=== PATIENT | male | born 1935 | race Caucasian/White ===

== ENCOUNTER → 2017-01-21 | Outpatient (CLI) | payer MEDICARE | END | disposition home or self-care (01) | LOC: PCVCCLINIC 12:08 | PROVIDERS: ATTEND Internal Medicine Cardiovascular Disease | DX: I48.0 Paroxysmal atrial fibrillation (principal); I10 Essential (primary) hypertension; J44.9 Chronic obstructive pulmonary disease, unspecified; I77.89 Other specified disorders of arteries and arterioles; Z90.49 Acquired absence of other specified parts of digestive tract; Z79.01 Long term (current) use of anticoagulants; Z79.899 Other long term (current) drug therapy; Z91.040 Latex allergy status | CPT/HCPCS: 80061; 93005; G0463 ==

== ENCOUNTER → 2018-03-26 | Outpatient (CLI) | payer MEDICARE ==
--- NOTE | 2018-03-26 16:44 | PCVCIMAG ---
APPROVED REPORT Study performed: 03/26/2018 14:48:44 EXAM: Comprehensive 2D, Doppler, and color-flow Echocardiogram Patient Location: Echo lab Status: routine BSA: 1.74 HR: 81 bpmBP: 130/72 mmHg Rhythm: NSR with PACs Other Information Study Quality: Adequate Risk Factors: Cardiac Risk Factors: HTN Indications Atrial Fibrillation Dyspnea 2D Dimensions LVEF(%): 38.36 (>50%) IVSd: 13.82 (7-11mm) LVDd: 37.80 mm PWd: 12.84 (7-11mm)Ascending Ao: 33.54 (22-36mm) LVDs: 30.93 (25-40mm) Left Atrium: 33.57 (27-40mm) Aortic Root: 31.31 mm LV Single Plane 4CH: 49.17 % LV Single Plane 2CH: 46.47 %[facility] LVEF: 47.82 % Biplane EF: 47.6 % Volumes Left Atrial Volume (Systole) Single Plane 4CH: 48.87 mLSingle Plane 2CH: 57.68 mL LA ESV Index: 31.00 mL/m2 Aortic Valve AoV Peak Randolph.: 1.97 m/s AO Peak Gr.: 15.55 mmHgLVOT Max P.10 mmHg LVOT Max V: 1.12 m/s Mitral Valve E/A Ratio: 0.5 MV Decel. Time: 267.42 ms MV E Max Randolph.: 0.63 m/s MV A Randolph.: 1.30 m/s IVRT: 121.11 ms Pulmonary Valve PV Peak Randolph.: 0.84 m/sPV Peak Gr.: 2.86 mmHg Pulmonary Vein P Vein S: 0.28 m/sP Vein A: 0.33 m/s P Vein D: 0.34 m/sP Vein A Dur.: 155.7 msec P Vein S/D Ratio: 0.82 Tricuspid Valve TR Peak Randolph.: 2.54 m/s TR Peak Gr.: 25.92 mmHg Left Ventricle The left ventricle is normal size. There is normal LV segmental wall motion. Mild concentric left ventricular hypertrophy. Left ventricular systolic function is mildly decreased. LVEF is 45-50%. Grade I - abnormal relaxation pattern. Right Ventricle The right ventricle is normal size. The right ventricular systolic function is normal. Atria The left atrium size is normal. The right atrium size is normal. Aortic Valve The aortic valve is normal in structure. Mild aortic regurgitation. There is no aortic valvular stenosis. Mitral Valve The mitral valve is normal in structure. Trace mitral regurgitation. No evidence of mitral valve stenosis. Tricuspid Valve The tricuspid valve is normal in structure. Mild tricuspid regurgitation with PAP of 33 mmHg. Pulmonic Valve The pulmonary valve is normal in structure. Trace pulmonic regurgitation. Great Vessels The aortic root is normal in size. IVC is normal in size and collapses with >50% inspiration Pericardium There is no pericardial effusion. There is no pleural effusion. <Conclusion> The left ventricle is normal size. Mild concentric left ventricular hypertrophy. Left ventricular systolic function is mildly decreased. LVEF is 45-50%. Grade I - abnormal relaxation pattern. The right ventricle is normal size. The left atrium size is normal. The right ventricular systolic function is normal. The aortic valve is normal in structure. Trace mitral regurgitation. Mild tricuspid regurgitation with PAP of 33 mmHg. The aortic root is normal in size. There is no pericardial effusion.
== END | disposition home or self-care (01) ==
LOC: PCVCCLINIC 13:13
PROVIDERS: ATTEND Internal Medicine Cardiovascular Disease
DX: I07.1 Rheumatic tricuspid insufficiency (principal); I48.0 Paroxysmal atrial fibrillation; K22.719 Barrett's esophagus with dysplasia, unspecified; I10 Essential (primary) hypertension; R06.09 Other forms of dyspnea; Z87.891 Personal history of nicotine dependence
CPT/HCPCS: 80061; 93005; 93306; G0463

== ENCOUNTER → 2019-07-06 | Outpatient (CLI) | payer MEDICARE ==
--- NOTE | 2019-07-06 16:40 | PCVCIMAG ---
APPROVED REPORT Study performed: 07/06/2019 14:32:31 EXAM: Comprehensive 2D, Doppler, and color-flow Echocardiogram Patient Location: Echo lab Status: routine BSA: 1.66 HR: 96 bpm Rhythm: NSR Other Information Study Quality: Technically Difficult Risk Factors: Cardiac Risk Factors: HTN, Hyperlipidemia Indications Dyspnea COPD, PAF 2D Dimensions IVSd: 12.91 (7-11mm)LVOT Diam: 18.97 (18-24mm) LVDd: 34.30 mm PWd: 11.29 (7-11mm)Ascending Ao: 33.83 (22-36mm) LVDs: 30.00 (25-40mm) Left Atrium: 30.96 (27-40mm) Aortic Root: 33.53 mm LV Single Plane 4CH: 43.51 % LV Single Plane 2CH: 53.27 % Volumes Left Atrial Volume (Systole) Single Plane 4CH: 16.80 mLSingle Plane 2CH: 37.83 mL LA ESV Index: 17.00 mL/m2 Aortic Valve AoV Peak Randolph.: 1.89 m/s AO Peak Gr.: 12.90 mmHgLVOT Max P.05 mmHg AO Mean Gr.: 7.79 mmHg AO V2 Mean: 1.31 m/sLVOT Max V: 1.07 m/s AO V2 VTI: 33.01 cm LILIA Vmax: 1.60 cm2 Mitral Valve E/A Ratio: 0.5 MV Decel. Time: 181.28 ms MV E Max Randolph.: 0.60 m/s MV A Randolph.: 1.26 m/s IVRT: 162.63 ms TDI E/Lateral E': 10.00E/Medial E': 10.00 Medial E' Randolph.: 0.06 m/s Lateral E' Randolph.: 0.06 m/s Pulmonary Vein P Vein S: 0.54 m/sP Vein A: 0.49 m/s P Vein D: 0.44 m/sP Vein A Dur.: 103.8 msec P Vein S/D Ratio: 1.23 Tricuspid Valve TR Peak Randolph.: 2.46 m/s TR Peak Gr.: 24.41 mmHg Left Ventricle The left ventricle is normal size. There is normal LV segmental wall motion. There is normal left ventricular wall thickness. Left ventricular systolic function is mildly decreased. LVEF is 45-50%. Grade I - abnormal relaxation pattern. Right Ventricle The right ventricle is normal size. The right ventricular systolic function is normal. Atria The left atrium size is normal. The right atrium size is normal. Aortic Valve The aortic valve is normal in structure. No aortic regurgitation is present. There is no aortic valvular stenosis. Mitral Valve Mild mitral annular calcification. There is no mitral valve regurgitation noted. No evidence of mitral valve stenosis. Tricuspid Valve The tricuspid valve is normal in structure. Trace tricuspid regurgitation. Pulmonary artery pressure is 31mmHg. Pulmonic Valve The pulmonary valve is normal in structure. There is no pulmonic valvular regurgitation. Great Vessels The aortic root is normal in size. IVC is normal in size and collapses >50% with inspiration. Pericardium There is no pericardial effusion. <Conclusion> The left ventricle is normal size. Left ventricular systolic function is mildly decreased. LVEF is 45-50%. Grade I - abnormal relaxation pattern. The right ventricle is normal size. The left atrium size is normal. The aortic valve is normal in structure. Mild mitral annular calcification. There is no mitral valve regurgitation noted. The aortic root is normal in size. There is no pericardial effusion.
== END | disposition home or self-care (01) ==
LOC: PCVCIMAG 14:27
PROVIDERS: ATTEND Internal Medicine Cardiovascular Disease
DX: I34.8 Other nonrheumatic mitral valve disorders (principal); R06.02 Shortness of breath; R42 Dizziness and giddiness; R06.00 Dyspnea, unspecified; J44.0 Chronic obstructive pulmonary disease with (acute) lower respiratory infection; I10 Essential (primary) hypertension; I48.0 Paroxysmal atrial fibrillation; Z87.891 Personal history of nicotine dependence; Z88.8 Allergy status to other drugs, medicaments and biological substances; Z90.49 Acquired absence of other specified parts of digestive tract; Z72.89 Other problems related to lifestyle
CPT/HCPCS: 36415; 80061; 93005; 93306; G0463